=== PATIENT | male | born 1980 | race Caucasian/White ===

== ENCOUNTER 2019-12-05 20:40 | Emergency (ER) | payer OTHER, SELFPAY ==
[2019-12-05 20:50] VITALS: BP 149/92; PULSE 75; RESP 18; TEMP 36.8; O2SAT 99; BMI 26.7
[2019-12-05 21:04] VITALS: BP 140/77; PULSE 67; RESP 12; O2SAT 100
[2019-12-05 21:30] VITALS: BP 124/76; PULSE 67; RESP 16; O2SAT 99
--- NOTE | 2019-12-05 21:32 | DI.RAD.S_ITS ---
PROCEDURE: XR CHEST 1V INDICATIONS: chest pain TECHNIQUE: One view of the chest was acquired. COMPARISON: None. FINDINGS: Surgical changes and devices: None. Lungs and pleura: Lungs are clear. No pleural effusions or pneumothorax. Mediastinum: Mediastinal contours appear normal. Heart size is normal. Bones and chest wall: No suspicious bony lesions. Overlying soft tissues appear unremarkable. IMPRESSION: No acute cardiopulmonary abnormality. Dictated by: Rafael Farooq M.D. on 12/05/2019 at 21:48 Approved by: Rafael Farooq M.D. on 12/05/2019 at 21:48
--- NOTE | 2019-12-05 21:38 | ED_ITS ---
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 Describes it left side of his chest that wrapping around to his back. It is not changed with deep breathing and is not changed with exertion. Was out today doing digging as well as running his tractor and only intermittently had pain. The pain however did continue intermittently throughout the day and was definitely causing him more concern. He has no current fever cough chills, wheeze, abdominal pain, diarrhea or vomiting. Related Data Allergies Allergy/AdvReac Type Severity Reaction Status Date / Time No Known Drug Allergies Allergy Verified 12/05/19 20:50 Review of Systems Review of Systems Narrative: Remainder of review of systems including constitutional, ENT, cardiovascular, respiratory, GI, , musculoskeletal, skin, neurologic and psychiatric systems reviewed and are unremarkable except as noted in HPI. Patient History Medical History Heat stroke (Acute) Social History Smoking Status: Never smoker Smoking Status: Never smoker Substance Use Type: does not use Exam Narrative Exam Narrative: General: Healthy appearing, in no acute distress. Able to give a complete and coherent history. Well-nourished well-developed HEENT: Moist mucous membranes, normal sclera with reactive pupils, Neck: No JVD, supple Respiratory: Lungs are clear to auscultation, no wheezing no rales no rhonchi. Full and symmetrical air movement Chest: Tenderness along costal margins left side of the manubrium. Cardiac: Regular rate and rhythm no murmurs no bruits Abdomen: Soft nontender good bowel tones, no flank pain Skin: Warm and dry, no rashes Neurologic: Grossly neurologically intact with no obvious asymmetries or abnormalities Extremities: No trauma, well perfused Psych: Cooperative, appropriate insight and affect Initial Vital Signs Initial Vital Signs: Vital Signs Temperature 98.3 F 12/05/19 20:50 Pulse Rate 75 12/05/19 20:50 Respiratory Rate 18 12/05/19 20:50 Blood Pressure 149/92 H 12/05/19 20:50 Pulse Oximetry 99 12/05/19 20:50 Course Orders Ordered: ED Orders 12/05/19 20:50 Complete Blood Count AUTO DIFF Stat Comprehensive Metabolic Panel Stat Lipase Stat Partial Thromboplastin Time Stat Prothrombin Time INR Stat Troponin & CK Cardiac Panel Stat 12/05/19 21:32 XR chest 1V Stat EKG-12 Lead Stat Discontinued Medications Ketorolac Tromethamine (Toradol) 15 mg IV NOW ONE Stop: 12/05/19 21:49 Last Admin: 12/05/19 21:53 Dose: 15 mg Documented by: RODOLFO Vital Signs Vital signs: Vital Signs - 8 hr 12/05/19 20:50 12/05/19 21:04 12/05/19 21:30 Temperature 98.3 F Pulse Rate 75 67 67 Respiratory Rate 18 12 16 Blood Pressure 149/92 H 140/77 124/76 Pulse Oximetry 99 100 99 12/05/19 22:00 Temperature Pulse Rate 68 Respiratory Rate 12 Blood Pressure 128/73 Pulse Oximetry 99 MDM - Chest Pain Medical Records Data Attestation: I reviewed the patient's medical records. Lab Data Attestation: I reviewed the patient's lab results. Result diagrams: 12/05/19 20:50 12/05/19 20:50 Labs: Lab Results 12/05/19 12/05/19 12/05/19 Range/Units 20:50 20:50 20:50 WBC 9.2 (4.5-11.0) X10^3/uL RBC 5.37 (4.5-5.9) X10^6/uL Hgb 16.0 (13.5-17.5) g/dL Hct 47.5 (41-53) % MCV 88.4 (80-100) fL MCH 29.8 (26-34) PG MCHC 33.8 (30-36) % RDW 12.6 (11.6-14.8) % Plt Count 242 (150-400) X10^3/uL Neut % (Auto) 65.8 (50-75) % Lymph % (Auto) 26.1 (25-40) % [place] % (Auto) 7.0 (3-14) % Eos % (Auto) 0.6 L (2-4) % Baso % (Auto) 0.5 (0-2) % Neut # (Auto) 6100 (6327-3546) /uL Lymph # (Auto) 2400 (7705-4482) /uL [place] # (Auto) 600 (0-900) /uL Eos # (Auto) 100 (0-450) /uL Baso # (Auto) 0 (0-100) /uL PT 13.3 H (10.1-12.7) SECONDS INR 1.2 (0.9-1.3) APTT 36 (26.4-36.2) SECONDS Sodium 141 (137-145) mmol/L Potassium 4.0 (3.4-5.1) mmol/L Chloride 104 (98-107) mmol/L Carbon Dioxide 30 (22-32) mmol/L BUN 15 (9-20) mg/dL Creatinine 1.06 (0.66-1.25) mg/dL Estimated GFR > 60.0 (>60) mL/min BUN/Creatinine Ratio 14.2 (6-22) Glucose 96 (70-100) mg/dL Calcium 9.5 (8.4-10.2) mg/dL Total Bilirubin 0.7 (0.2-1.3) mg/dL AST 30 (17-59) IU/L ALT 28 (<50) IU/L Alkaline Phosphatase 68 (38-126) U/L Total Creatine Kinase 222 H (55-170) U/L CK-MB (CK-2) 1.22 (<2.37) ng/mL CK-MB (CK-2) Rel Index 0.5 L (1.5-5.0) % Troponin I < 0.012 (0.01-0.034) ng/mL Total Protein 7.9 (6.3-8.2) g/dL Albumin 4.6 (3.5-5.0) g/dL Globulin 3.3 (1.7-4.1) g/dL Albumin/Globulin Ratio 1.4 (1.0-2.8) Lipase 45 (23-300) U/L [facility] Narrative Medical decision making narrative: 39-year-old otherwise physically healthy ge ntleman with chest pain now for 12 hours. No evidence of pneumothorax, infection, acute coronary syndrome or STEMI, pericarditis or other life- threatening etiology. On clinical exam with pain reproducible when palpating along the left sternal border and manubrium and improved significantly with To radol most likely diagnosis at this point is costochondritis. Findings reviewed with patient. He is safe for home discharge Discharge Plan Departure Patient Disposition: Home Clinical Impression: Costalchondritis Instructions: DI for Costochondritis Activity Restrictions/Additional Instructions: Thank you for coming in today I did not find any evidence of life-threatening things that would be causing your test pain. Specifically there is no heart attack, no collapsed lung, no lung or heart infection. I suspect that you have costochondritis as a source of your pain. This will improve with time. Using 400 mg of ibuprofen (2 [id number] pills) and 1 Tylenol every 6 hours can be very helpful in controlling pain. If you find your having worsening or changing symptoms please feel free to return to the emergency department. Referrals: Terry Nixon ARNP [Primary Care Provider] -
[2019-12-05 21:42] LABS: INR 1.2 (0.9-1.3); Prothrombin Time 13.3 SECONDS (10.1-12.7)
[2019-12-05 21:43] LABS: Add Manual Diff / Slide Review NO; Basophils Absolute Auto 0 /uL (0-100); Basophils Percent Auto 0.5 % (0-2); Eosinophils Absolute Auto 100 /uL (0-450); Eosinophils Percent Auto 0.6 % (2-4); Hematocrit 47.5 % (41-53); Lymphocytes Absolute Auto 2400 /uL (1100-4500); Lymphocytes Percent Auto 26.1 % (25-40); Mean Corpuscular HGB Conc 33.8 % (30-36); Mean Corpuscular Hemoglobin 29.8 PG (26-34); Mean Corpuscular Volume 88.4 fL (80-100); Monocytes Absolute Auto 600 /uL (0-900); Neutrophils Absolute Auto 6100 /uL (1500-7000); Neutrophils Percent Auto 65.8 % (50-75); Platelet Count 242 X10^3/uL (150-400); Red Blood Cell Count 5.37 X10^6/uL (4.5-5.9); Red Cell Distribution Width 12.6 % (11.6-14.8); White Blood Cell Count 9.2 X10^3/uL (4.5-11.0)
[2019-12-05 21:44] LABS: PTT Partial Thromboplastin Tim 36 SECONDS (26.4-36.2)
[2019-12-05 21:46] LABS: Alanine Aminotransferase 28 IU/L (<50); Albumin 4.6 g/dL (3.5-5.0); Albumin Globulin Ratio 1.4 (1.0-2.8); Alkaline Phosphatase 68 U/L (38-126); Aspartate Aminotransferase 30 IU/L (17-59); BUN Creatinine Ratio 14.2 (6-22); Bilirubin Total 0.7 mg/dL (0.2-1.3); Blood Urea Nitrogen 15 mg/dL (9-20); Calcium 9.5 mg/dL (8.4-10.2); Carbon Dioxide 30 mmol/L (22-32); Chloride 104 mmol/L (98-107); Creatine Kinase 222 U/L (55-170); Estimated Glomerular Filt Rate > 60.0 mL/min (>60); Globulin 3.3 g/dL (1.7-4.1); Glucose 96 mg/dL (70-100); HEMOLYSIS < 15 (0-50); Lipase 45 U/L (23-300); Sodium 141 mmol/L (137-145); Total Protein 7.9 g/dL (6.3-8.2)
[2019-12-05] MEDS: KETOROLAC 60 MG/2 ML VIAL 15 MG IV (21:53)
[2019-12-05 21:57] LABS: Troponin I < 0.012 ng/mL (0.01-0.034)
[2019-12-05 22:00] VITALS: BP 128/73; PULSE 68; RESP 12; O2SAT 99
[2019-12-05 22:01] LABS: CKMB % Relative Index 0.5 % (1.5-5.0); Creatine Kinase MB 1.22 ng/mL (<2.37)
[2019-12-05 22:31] VITALS: BP 119/82; PULSE 60; RESP 20; O2SAT 99
== END 2019-12-05 22:44 | disposition home or self-care (01) ==
PROVIDERS: Emergency Provider Emergency Medicine; PCP Registered Nurse; Referring Provider Registered Nurse
DX: M94.0 Chondrocostal junction syndrome [Tietze] (principal); R07.9 Chest pain, unspecified
CPT/HCPCS: 36415; 71045; 80053; 82550; 82553; 83690; 84484; 85025; 85610; 85730; 93005; 96374; 99284; J1885

== ENCOUNTER 2022-08-19 14:50 | Emergency (ER) | payer OTHER, SELFPAY ==
[2022-08-19] VITALS (8 sets, daily range): BP systolic 134–145; BP diastolic 67–83; PULSE 66–77; RESP 18; TEMP 36.2; O2SAT 97–99; BMI 30.2
--- NOTE | 2022-08-19 15:18 | PC.NURSE ---
checked pt CO with our finger probe. Reading was 1.0
[2022-08-19 15:39] LABS: Add Manual Diff / Slide Review NO; Basophils Absolute Auto 100 /uL (0-100); Basophils Percent Auto 0.6 % (0-2); Eosinophils Absolute Auto 0 /uL (0-450); Eosinophils Percent Auto 0.3 % (2-4); Hematocrit 44.4 % (41-53); Hemoglobin 15.4 g/dL (13.5-17.5); Lymphocytes Absolute Auto 1100 /uL (1100-4500); Lymphocytes Percent Auto 13.3 % (25-40); Mean Corpuscular HGB Conc 34.8 % (30-36); Mean Corpuscular Hemoglobin 29.8 PG (26-34); Mean Corpuscular Volume 85.6 fL (80-100); Monocytes Absolute Auto 300 /uL (0-900); Monocytes Percent Auto 3.2 % (3-14); Neutrophils Absolute Auto 6800 /uL (1500-7000); Neutrophils Percent Auto 82.6 % (50-75); Platelet Count 237 X10^3/uL (150-400); Red Blood Cell Count 5.19 X10^6/uL (4.5-5.9); Red Cell Distribution Width 12.9 % (11.6-14.8); White Blood Cell Count 8.2 X10^3/uL (4.5-11.0)
[2022-08-19] MEDS: SODIUM CHLORIDE 0.9% 1,000 ML 1000 ML IV (15:40)
[2022-08-19 15:45] LABS: HEMOLYSIS 19 (0-50)
[2022-08-19 15:51] LABS: Alanine Aminotransferase 26 IU/L (<50); Albumin 4.4 g/dL (3.5-5.0); Albumin Globulin Ratio 1.5 (1.0-2.8); Alkaline Phosphatase 65 U/L (38-126); Aspartate Aminotransferase 24 IU/L (17-59); BUN Creatinine Ratio 14.1 (6-22); Bilirubin Total 0.4 mg/dL (0.2-1.3); Blood Urea Nitrogen 14 mg/dL (9-20); Calcium 9.2 mg/dL (8.4-10.2); Carbon Dioxide 27 mmol/L (22-32); Chloride 107 mmol/L (98-107); Estimated Glomerular Filt Rate > 60 mL/min (>60); Glucose 117 mg/dL (70-100); Lipase 37 U/L (23-300); Magnesium 2.2 mg/dL (1.6-2.3); Phosphorous 2.7 mg/dL (2.5-4.5); Potassium 4.1 mmol/L (3.4-5.1); Sodium 141 mmol/L (137-145); Total Protein 7.4 g/dL (6.3-8.2)
--- NOTE | 2022-08-19 15:59 | ED_ITS ---
HPI - Neuro Symptoms/Deficit General Chief Complaint: Neuro Symptoms/Deficit Stated Complaint: LOSING FEELING IN ARMS Time Seen by Provider: 08/19/22 15:14 Source: patient Mode of arrival: Ambulatory History of Present Illness HPI Narrative: Patient is a 41-year-old male who is here for evaluation of an episode that occurred earlier today. He states he was at his normal state of health when he had a fairly sudden onset of tingling around his mouth. He also had tingling on both of his arms from his elbow down to his hands on the ulnar side. He also had tingling on the top both of his legs. He stated that he was not having chest pain or palpitations no shortness of breath at the time. No headache. No lightheadedness. Symptoms lasted for several hours. By the time I evaluated here in the emergency department he states he was feeling much better. No vision changes. On Anticoagulants: No Related Data Allergies Allergy/AdvReac Type Severity Reaction Status Date / Time No Known Drug Allergies Allergy Verified 08/19/22 14:53 Review of Systems Constitutional Constitutional: Reports system reviewed and no additional complaints, except as documented Cardiovascular Cardiovascular: Reports system reviewed and no additional complaints, except as documented Gastrointestinal Gastrointestinal: Reports system reviewed and no additional complaints, except as documented Integumentary/Breasts Skin/Breast: Reports system reviewed and no additional complaints, except as documented Neurologic Neurologic: Reports system reviewed and no additional complaints, except as documented Hematologic/Lymphatic On Anticoagulants: No Patient History Medical History Heat stroke Social History Smoking Status: Never smoker Smoking Status: Never smoker Substance Use Type: does not use Exam Initial Vital Signs Initial Vital Signs: Vital Signs Temperature 97.1 F L 08/19/22 14:53 Pulse Rate 77 08/19/22 14:53 Respiratory Rate 18 08/19/22 14:53 Blood Pressure 145/83 H 08/19/22 14:53 Pulse Oximetry 99 08/19/22 14:53 Oxygen Delivery Method Room Air 08/19/22 14:53 Const General: cooperative, comfortable and No ill appearing HENMT Head: normal to inspection and normocephalic Resp Effort & Inspection: normal respiratory effort Auscultation: clear to auscultation bilaterally Cardio Rate: regular rate Skin General: no rashes or lesions noted Neuro General: patient alert, patient awake, patient oriented x3 and moves all extremities Speech: speech normal Gait: normal gait Motor: muscle tone normal throughout Sensory Exam: no sensory deficits noted Extrem General: normal to inspection Course Orders Ordered: ED Orders 08/19/22 15:31 Complete Blood Count AUTO DIFF Stat Comprehensive Metabolic Panel Stat Ketones (Beta-Hydroxybutyrate) Stat Lipase Stat Magnesium Stat Phosphorous Stat Discontinued Medications Sodium Chloride (Normal Saline 0.9%) 1,000 mls @ 1,000 mls/hr IV BOLUS ONE Stop: 08/19/22 16:14 Last Infusion: 08/19/22 16:43 Dose: 0 mls/hr Documented By: Admin: 08/19/22 15:40 Dose: 1,000 mls/hr Documented By: LACEY Vital Signs Vital signs: Vital Signs - 8 hr 08/19/22 14:53 08/19/22 15:05 08/19/22 15:06 Temperature 97.1 F L Pulse Rate 77 73 Respiratory Rate 18 Blood Pressure 145/83 H 135/82 Pulse Oximetry 99 98 Oxygen Delivery Method Room Air 08/19/22 15:06 08/19/22 15:30 08/19/22 15:33 Temperature Pulse Rate 75 72 68 Respiratory Rate Blood Pressure Pulse Oximetry 98 97 97 Oxygen Delivery Method 08/19/22 15:33 08/19/22 16:00 08/19/22 16:00 Temperature Pulse Rate 66 Respiratory Rate Blood Pressure 140/69 138/71 Pulse Oximetry 99 Oxygen Delivery Method 08/19/22 16:30 08/19/22 16:30 08/19/22 17:00 Temperature Pulse Rate 71 Respiratory Rate Blood Pressure 144/75 H 134/67 Pulse Oximetry 97 Oxygen Delivery Method 08/19/22 17:00 Temperature Pulse Rate 66 Respiratory Rate Blood Pressure Pulse Oximetry 97 Oxygen Delivery Method MDM - Neuro Symptoms/Deficit Lab Data 08/19/22 15:31 08/19/22 15:31 Labs: Lab Results 08/19/22 08/19/22 Range/Units 15:31 15:31 WBC 8.2 (4.5-11.0) X10^3/uL RBC 5.19 (4.5-5.9) X10^6/uL Hgb 15.4 (13.5-17.5) g/dL Hct 44.4 (41-53) % MCV 85.6 (80-100) fL MCH 29.8 (26-34) PG MCHC 34.8 (30-36) % RDW 12.9 (11.6-14.8) % Plt Count 237 (150-400) X10^3/uL Neut % (Auto) 82.6 H (50-75) % Lymph % (Auto) 13.3 L (25-40) % [place] % (Auto) 3.2 (3-14) % Eos % (Auto) 0.3 L (2-4) % Baso % (Auto) 0.6 (0-2) % Neut # (Auto) 6800 (3589-3153) /uL Lymph # (Auto) 1100 (7912-8437) /uL [place] # (Auto) 300 (0-900) /uL Eos # (Auto) 0 (0-450) /uL Baso # (Auto) 100 (0-100) /uL Sodium 141 (137-145) mmol/L Potassium 4.1 (3.4-5.1) mmol/L Chloride 107 (98-107) mmol/L Carbon Dioxide 27 (22-32) mmol/L BUN 14 (9-20) mg/dL Creatinine 0.99 (0.66-1.25) mg/dL Estimated GFR > 60 (>60) mL/min BUN/Creatinine Ratio 14.1 (6-22) Glucose 117 H (70-100) mg/dL Calcium 9.2 (8.4-10.2) mg/dL Phosphorus 2.7 (2.5-4.5) mg/dL Magnesium 2.2 (1.6-2.3) mg/dL Total Bilirubin 0.4 (0.2-1.3) mg/dL AST 24 (17-59) IU/L ALT 26 (<50) IU/L Alkaline Phosphatase 65 (38-126) U/L Total Protein 7.4 (6.3-8.2) g/dL Albumin 4.4 (3.5-5.0) g/dL Globulin 3.0 (1.7-4.1) g/dL Albumin/Globulin Ratio 1.5 (1.0-2.8) Lipase 37 (23-300) U/L Ketones 0.05 (<0.27) mmol/L Point of Care Testing Glucose POC 104 Urine Dip Bedside Urine Glucose Negative Bedside Urine Bilirubin - Negative Bedside Urine Ketone - Negative Urine Specific [place] 1.010 Bedside Urine Occult Blood - Negative Bedside Urine pH 7.5 Bedside Urine Protein - Negative Bedside Urine Urobilinogen - Negative Bedside Urine Nitrite - Negative Bedside Urine Leukocytes - Negative Esterase MDM Narrative Medical decision making narrative: Workup here in the emergency department is very reassuring. I have low suspicion for seizure. Low suspicion for TIA/CVA. He is no ectopy noted on the monitors. Is afebrile. Electrolytes are unremarkable. Unsure the exact etiology. Since he had a fairly significant heat stroke several years ago he h as had issues with tolerating heat although he states he did not feel particularly more with the time the event was happening today. He is afebrile. No indication for antibiotics. Discharge patient home. He was given return precautions. He expressed understanding and agreement. Discharge Plan Departure Patient Disposition: Home Clinical Impression: Distal paresthesia Instructions: DI for Numbness/Tingling Activity Restrictions/Additional Instructions: Your workup here in the emergency department is very reassuring. There is no signs of any infection or stroke or seizure. Recommend that you continue to take any medications as directed. Contact your primary doctor for follow-up. Return to the emergency department for new or worsening symptoms. Referrals: Terry Nixon ARNP [Primary Care Provider] - Stand Alone Forms: Patient Portal/API
[2022-08-19 16:11] LABS: Ketones (Beta-Hydroxybutyrate) 0.05 mmol/L (<0.27)
--- NOTE | 2022-08-19 16:34 | PC.NURSE ---
pt was feeling fine prior to going to [place] today, when he returned out he felt funny. arms feel lightheaded and when he lays down his legs feel the same way. states he has been driving her car around for 2 days she she thinks the car smells of exhaust. CO test done at bedside, see previous note. [facility] negative, FAST exam negative.
== END 2022-08-19 17:09 | disposition home or self-care (01) ==
PROVIDERS: Emergency Provider Emergency Medicine; PCP Registered Nurse
DX: R20.2 Paresthesia of skin (principal)
CPT/HCPCS: 36415; 80053; 81003; 82009; 82962; 83690; 83735; 84100; 85025; 99283; 99284